=== PATIENT | male | born 1990 | race Two or more races ===

== ENCOUNTER 2022-07-13 04:43 | Emergency (ER) | payer MEDICAID, OTHER ==
[~2022-07-13] VITALS: Ht 162.6 cm; Wt 80.0 kg
[2022-07-13] MEDS ORDERED: SODIUM CHLORIDE 0.9% 2,000 ML IV ONE (05:30)
[2022-07-13] MEDS ORDERED: levETIRAcetam 500 MG/5ML INJ IV ONE (05:39)
[2022-07-13 06:35] LABS: Urine Bacteria NONE SEEN /hpf (None Seen); Urine Blood TRACE /uL (Negative); Urine Specific Gravity 1.018 (1.001-1.035); Urine WBC 2 /hpf (0 - 3)
[2022-07-13 06:40] LABS: Basophils # (auto) 0 10 ^3/uL (0-0.2); Basophils % (auto) 0.4 % (0.0-2.0); Eosinophils # (auto) 0 10 ^3/uL (0-0.8); Eosinophils % (auto) 0.1 % (0.0-7.0); Hematocrit 45.7 % (41.0-53.0); Hemoglobin 15.7 g/dL (13.5-17.5); Lymphocytes # (auto) 0.9 10 ^3/uL (0.4-5.4); Lymphocytes % (auto) 9.5 % (10.0-50.0); Mean Corpuscular Hgb Conc. 34.3 g/dL (32.0-36.0); Mean Corpuscular Volume 90.4 fL (80.0-100.0); Monocytes # (auto) 0.6 10 ^3/uL (0-1.3); Monocytes % (auto) 6.1 % (0.0-12.0); Neutrophils # (auto) 8.1 10 ^3/uL (1.6-8.6); Neutrophils % (auto) 83.9 % (37.0-80.0); Nucleated Red Blood Cells % 1.2 %; Red Blood Cells 5.05 10^6/uL (4.5-5.90); Red Cell Distribution Width 13.5 % (11.8-14.3); White Blood Cell 9.7 10^3/uL (4.4-10.8)
[2022-07-13 06:51] LABS: Albumin 4.2 g/dL (3.4-5.0); BUN/Creatinine Ratio 15.1; Calcium 8.8 mg/dL (8.5-10.1)
[2022-07-13 06:52] LABS: Lactic Acid w/Reflex 2.6 mmol/L (0.4-2.0)
[2022-07-13 06:54] LABS: Bilirubin, Total 0.2 mg/dL (0.2-1.0)
[2022-07-13] MEDS ORDERED: LORazepam 2MG/ML-1ML VIAL IV ONE (07:45)
[2022-07-13] MEDS ORDERED: SODIUM CHLORIDE 0.9% 1,000 ML IV ONE (08:45)
[2022-07-13 10:00] VITALS: BP 109/67
== END 2022-07-13 11:08 | disposition left against medical advice (07) ==
LOC: ER 04:43 → EDBD 04:43 → ER 10:54
DX: R56.9 Unspecified convulsions (principal); Z86.69 Personal history of other diseases of the nervous system and sense organs
CPT/HCPCS: 36415; 70450; 71045; 80053; 80164; 81001; 82542; 83605; 85025; 85379; 93005; 96361; 96365; 96375; 99285; J1953; J2060; J7030; J7060

== ENCOUNTER 2022-08-12 07:52 | Emergency (ER) | payer MEDICAID ==
[~2022-08-12] VITALS: Ht 175.3 cm; Wt 86.3 kg
[2022-08-12] MEDS ORDERED: LORazepam 2MG/ML-1ML VIAL IV ONE (08:45)
[2022-08-12 08:58] LABS: Basophils # (auto) 0 10 ^3/uL (0-0.2); Basophils % (auto) 0.8 % (0.0-2.0); Eosinophils # (auto) 0.1 10 ^3/uL (0-0.8); Eosinophils % (auto) 1.1 % (0.0-7.0); Hematocrit 50.5 % (41.0-53.0); Hemoglobin 16.9 g/dL (13.5-17.5); Lymphocytes # (auto) 1.3 10 ^3/uL (0.4-5.4); Lymphocytes % (auto) 28.3 % (10.0-50.0); Mean Corpuscular Hemoglobin 31.1 pg (28.0-32.0); Mean Corpuscular Hgb Conc. 33.5 g/dL (32.0-36.0); Mean Corpuscular Volume 92.7 fL (80.0-100.0); Monocytes # (auto) 0.3 10 ^3/uL (0-1.3); Monocytes % (auto) 7.4 % (0.0-12.0); Neutrophils # (auto) 2.9 10 ^3/uL (1.6-8.6); Neutrophils % (auto) 62.4 % (37.0-80.0); Nucleated Red Blood Cells % 0.1 %; Red Blood Cells 5.45 10^6/uL (4.5-5.90); Red Cell Distribution Width 12.6 % (11.8-14.3); White Blood Cell 4.7 10^3/uL (4.4-10.8)
[2022-08-12 09:15] LABS: Albumin 4.2 g/dL (3.4-5.0); BUN/Creatinine Ratio 12.5; Bilirubin, Total 0.4 mg/dL (0.2-1.0); Calcium 9.2 mg/dL (8.5-10.1); Potassium 4.7 mmol/L (3.5-5.1); Total Protein 7.5 g/dL (6.4-8.2)
[2022-08-12 10:24] LABS: Urine Bacteria NONE SEEN /hpf (None Seen); Urine Blood TRACE /uL (Negative); Urine Hyaline Cast FEW /lpf (0 - 2); Urine Specific Gravity 1.021 (1.001-1.035); Urine WBC 3 /hpf (0 - 3)
[2022-08-12 11:07] VITALS: BP 104/68
== END 2022-08-12 11:13 | disposition home or self-care (01) ==
LOC: EDBD 07:52 → ER 07:56
DX: G40.909 Epilepsy, unspecified, not intractable, without status epilepticus (principal); Z85.841 Personal history of malignant neoplasm of brain
CPT/HCPCS: 36415; 80053; 81001; 85025; 96365; 96375; 99284; J1953; J2060; J7060

== ENCOUNTER 2022-08-27 05:47 | Emergency (ER) | payer MEDICAID ==
[~2022-08-27] VITALS: Ht 175.3 cm; Wt 86.2 kg
[2022-08-27 06:17] VITALS: BP 147/90
[2022-08-27] MEDS ORDERED: SODIUM CHLORIDE 0.9% 1,000 ML IV ONE (07:30)
[2022-08-27 08:03] LABS: Basophils # (auto) 0 10 ^3/uL (0-0.2); Basophils % (auto) 0.6 % (0.0-2.0); Eosinophils # (auto) 0 10 ^3/uL (0-0.8); Eosinophils % (auto) 0.4 % (0.0-7.0); Hematocrit 46.9 % (41.0-53.0); Lymphocytes % (auto) 19.1 % (10.0-50.0); Mean Corpuscular Hemoglobin 31.4 pg (28.0-32.0); Mean Corpuscular Hgb Conc. 34.2 g/dL (32.0-36.0); Mean Corpuscular Volume 91.8 fL (80.0-100.0); Monocytes # (auto) 0.5 10 ^3/uL (0-1.3); Neutrophils # (auto) 3.7 10 ^3/uL (1.6-8.6); Neutrophils % (auto) 70.9 % (37.0-80.0); Red Blood Cells 5.11 10^6/uL (4.5-5.90); Red Cell Distribution Width 12.5 % (11.8-14.3); White Blood Cell 5.2 10^3/uL (4.4-10.8)
[2022-08-27 08:15] LABS: Potassium 4.4 mmol/L (3.5-5.1)
[2022-08-27 08:23] LABS: Albumin 4.1 g/dL (3.4-5.0); BUN/Creatinine Ratio 9.1; Bilirubin, Total 0.5 mg/dL (0.2-1.0); Calcium 9.5 mg/dL (8.5-10.1); Total Protein 7.2 g/dL (6.4-8.2)
[2022-08-27] MEDS ORDERED: levETIRAcetam 500 MG/5ML INJ IV ONE (14:16)
== END 2022-08-27 15:11 | disposition home or self-care (01) ==
LOC: ER 05:47 → EDBD 05:47 → ER 15:11
DX: R56.9 Unspecified convulsions (principal)
CPT/HCPCS: 36415; 70450; 80053; 85025; 93005; 96365; 99285; J1953; J7030; J7060

== ENCOUNTER 2025-05-14 10:42 | Inpatient (IN) | payer MEDICAID ==
[~2025-05-14] VITALS: Ht 172.7 cm; Wt 86.4 kg
--- NOTE | 2025-05-14 11:07 | ED.PDOC ---
HPI (NEURO) HPI Comments 34-year-old male with a history of seizures, and a brain tumor, was brought in by Emergency Services for the chief complaint of a witnessed tonic-clonic seizure. EMS states upon arrival patient had already preceded to his postictal state, and notes the patient's heart rate was in the 180s to 200s eats permanent on route, and was given 6 mg of adenosine, and a 500 normal saline bolus with notable improvement. Patient is now alert oriented x4 and answering questions appropriately. Patient notes that he has been compliant with his Keppra medication. Patient denies any nausea, vomiting, diarrhea, abdominal pain, blurry vision, urinary symptoms, or any other associated symptoms, factors, modifiers at this time. Chief Complaint: Seizure Time Seen by MD: 11:04 Reviewed Notes: Nurses Notes, Coagulating Bath Mixer Notes, Medications, Allergies Information Source: Patient, Emergency Med Personnel Mode of Arrival: EMS Severity: Moderate Dizziness/Weakness Severity: Bedridden Headache Severity: Moderate Timing: Minutes Duration: Since onset, Hours Prehospital treatment: 12 Lead EKG, Accucheck, Supervisor Cell Maintenance Seizure Quality: Tonic-clonic Headache Quality: Throbbing Headache Location: Generalized Weakness Location: Generalized Numbness Location: Generalized Seizure Location: Generalized Onset: At rest Circumstances: Spontaneous Symptoms: Weakness Before: Normal During: Awake After: Confusion, Headache History of: Seizure Disorder Modifying factors: Nothing Associated Signs and Symptoms: None Past Medical History PAST MEDICAL HISTORY: Cancer, Seizures Family History Family History: Reviewed,noncontributory to illness Social History Smoker: Non-Smoker Alcohol: Denies ETOH Use Drugs: Denies Drug Use Lives In: Home Constitutional: denies: chills, diaphoresis, fatigue, fever, malaise, sweats, weakness, others EENTM: denies: blurred vision, double vision, ear bleeding, ear discharge, ear drainage, ear pain, ear ringing, eye pain, eye redness, hearing loss, mouth pain, mouth swelling, nasal discharge, nose bleeding, nose congestion, nose pain, photophobia, tearing, throat pain, throat swelling, voice changes, others Respiratory: denies: cough, hemoptysis, orthopnea, SOB at rest, shortness of breath, SOB with excertion, stridor, wheezing, others Cardiovascular: denies: chest pain, dizzy spells, diaphoresis, Dyspnea on e xertion, edema, irregular heart beat, left arm pain, lightheadedness, palpitations, PND, syncope, others Gastrointestinal: denies: abdomen distended, abdominal pain, blood streaked bowels, constipated, diarrhea, dysphagia, difficulty swallowing, hematemesis, melena, nausea, poor appetite, poor fluid intake, rectal bleeding, rectal pain, vomiting, others Genitourinary: denies: burning, dysuria, flank pain, frequency, hematuria, incontinence, penile discharge, penile sore, pain, testicle pain, testicle swelling, urgency, others Neurological: reports: seizure; denies: dizziness, fainting, headache, left sided numbness, left sided weakness, numbness, paresthesia, pre-existing deficit, right sided numbness, right sided weakness, speech problems, tingling, tremors, weakness, others Musculoskeletal: denies: back pain, gout, joint pain, joint swelling, muscle pain, muscle stiffness, neck pain, others Integumetry: denies: bruises, change in color, change in hair/nails, dryness, laceration, lesions, lumps, rash, wounds, others Allergic/Immunocompromised: denies: Difficulty Healing, Frequent Infections, Hives, Itching, others Hematologic/Lymphatic: denies: anemia, blood clots, easy bleeding, easy bruising, swollen glands, others Endocrine: denies: excessive hunger, excessive sweating, excessive thirst, excessive urination, flushing, intolerance to cold, intolerance to heat, unexplained weight gain, unexplained weight loss, others Psychiatric: denies: anxiety, bipolar disorder, depression, hopeless, panic disorder, schizophrenia, sleepless, suicidal, others All Other Systems: Reviewed and Negative Physical Exam General Appearance: Moderate Distress, Normal HEENT: Normal ENT Inspection, Pharynx Normal, TMs Normal Neck: Full Range of Motion, Non-Tender, Normal, Normal Inspection Respiratory: Chest Non-Tender, Lungs Clear, No Accessory Muscle Use, No Respiratory Distress, Normal Breath Sounds Cardiovascular: Irregular, No Edema, No JVD, No Murmur, No Gallop, Normal Peripheral Pulses Breast Exam: Deferred Gastrointestinal: No Organomegaly, Non Tender, No Pulsatile Mass, Normal Bowel Sounds, Soft Genitalia: Deferred Pelvic: Deferred Rectal: Deferred Extremities: No calf tenderness, Normal capillary refill, Normal inspection, Normal range of motion, Non-tender, No pedal edema Musculoskeletal : Apperance: Normal Neurologic: Disoriented, No Motor Deficits, No Sensory Deficits Cerebellar Function: NOT DONE Reflexes: NOT DONE Skin: Dry, Normal Color, Warm Peripheral Pulses: 3+ Radial (R), 3+ Radial (L) Lymphatic: No Adenopathy Was a procedure done? Was a procedure done?: No Differential Diagnosis (SZ) Seizure: Psychogenic Seizure, Alcohol Withdrawl, Closed Head Injury, CVA/TIA, Drug Ingestion, Syncope, Encephalopathy CVA: CVA, Electrolyte Imbalance, Encephalopathy, TIA General Weakness: N/A Headache: N/A X-Ray, Labs, Meds, VS Vital Signs Date Time Temp Pulse Resp B/P (MAP) Pulse Ox O2 Delivery O2 Flow Rate FiO2 05/14/25 11:35 117/75 05/14/25 11:05 104/57 05/14/25 10:50 98.4 180 24 113/82 99 98.4 05/14/25 10:48 174 Lab Test 05/14/25 11:42 05/14/25 11:10 Range/Units Urine Color Pending Urine Clarity Pending Urine pH Pending Urine Specific [place] Pending Urine Protein Pending Urine Ketones Pending Urine Blood Pending Urine Nitrite Pending Urine Bilirubin Pending Urine Urobilinogen Pending Urine Leukocyte Esterase Pending Urine RBC Pending Urine Microscopic WBC Pending Urine Squamous Epithelial Cells Pending Urine Bacteria Pending Urine Glucose Pending White Blood Count 13.2 H 4.4-10.8 10^3/uL Red Blood Count 5.32 4.5-5.90 10^6/uL Hemoglobin 17.4 13.5-17.5 g/dL Hematocrit 49.8 41.0-53.0 % Mean Corpuscular Volume 93.6 80.0-100.0 fL Mean Corpuscular Hemoglobin 32.8 H 28.0-32.0 pg Mean Corpuscular Hemoglobin Concent 35.0 32.0-36.0 g/dL Red Cell Distribution Width 12.8 11.8-14.3 % Platelet Count 302 140-450 10^3/uL Mean Platelet Volume 7.8 6.9-10.8 fL Neutrophils (%) (Auto) 76.5 37.0-80.0 % Lymphocytes (%) (Auto) 14.3 10.0-50.0 % Monocytes (%) (Auto) 8.4 0.0-12.0 % Eosinophils (%) (Auto) 0.3 0.0-7.0 % Basophils (%) (Auto) 0.5 0.0-2.0 % Neutrophils # (Auto) 10.1 H 1.6-8.6 10 ^3/uL Lymphocytes # (Auto) 1.9 0.4-5.4 10 ^3/uL Monocytes # (Auto) 1.1 0-1.3 10 ^3/uL Eosinophils # (Auto) 0 0-0.8 10 ^3/uL Basophils # (Auto) 0.1 0-0.2 10 ^3/uL Nucleated Red Blood Cells 0.1 % Sodium Level 138 136-145 mmol/L Potassium Level 5.5 H 3.5-5.1 mmol/L Chloride Level 104 98-107 mmol/L Carbon Dioxide Level 18 L 20-31 mmol/L Anion Gap 16 H 5-15 Blood Urea Nitrogen 6 L 9-23 mg/dL Creatinine 0.84 0.700-1.30 mg/dL Glomerular Filtration Rate Calc 118 >90 mL/min BUN/Creatinine Ratio 7.1 L 10.0-20.0 Serum Glucose 125 H 74-106 mg/dL Calcium Level 9.8 8.7-10.4 mg/dL Troponin I High Sensitivity 12 </=54 ng/L Current Medications Medications (Trade) Dose Ordered Sig/Rosalinda Route Start Time Stop Time Status Last Admin Diltiazem HCl (Cardizem Injection) 20 mg ONCE ONCE IV 05/14/25 11:00 05/14/25 11:10 DC 05/14/25 11:18 Sodium Chloride 1,000 ml @ 1,000 mls/hr Q1H ONCE IV 05/14/25 11:00 05/14/25 11:59 DC 05/14/25 11:30 Diltiazem HCl 100 ml @ 5 mls/hr Q20H IV 05/14/25 11:30 05/14/25 11:05 Levetiracetam 100 ml @ 400 mls/hr ONCE ONCE IV 05/14/25 11:30 05/14/25 11:44 DC 05/14/25 11:49 Patient postictal. History of seizure. Unknown his medication. Placed on oxygen. Was given Keppra. Was given Ativan. Establish intravenous access. Was given fluids. EKG shows atrial fibrillation. Started Cardizem. WBC slightly elevated. Possible dehydration. Reviewed his history. Waiting for family. Continue monitoring. Time of 1ST Reevaluation: 11:35 Reevaluation 1ST: Unchanged Patient Education/Counseling: Diagnosis, Treatment, Need For Follow Up Family Education/Counseling: No Family Present Departure 1 Departure Time of Disposition: 12:00 Impression: Primary Impression: Metabolic encephalopathy Additional Impressions: Seizure Atrial fibrillation Qualified Codes: I48.0 - Paroxysmal atrial fibrillation Disposition: ADMITTED INPATIENT Admit to: Med Surg Condition: Guarded Critical Care Note Critical Care Time?: Yes (90 min-critical care time only) Stability Stability form required: No Heart Score Heart Score: Heart Score Response (Comments) Value History N/A 0 EKG N/A 0 Age N/A 0 Risk Factors N/A 0 Troponin N/A 0 Total 0 I personally scribed for YESICA MILTON MD ([email or web address]) on 05/14/25 at 11:07. Electronically submitted by Apollo Andersen ([email or web address]). YESICA MILTON MD May 14, 2025 11:07
[2025-05-14] MEDS: dilTIAZem 25 MG/5 ML VIAL IV ONE ×3 (11:18→11:20)
[2025-05-14] MEDS: SODIUM CHLORIDE 0.9% 1,000 ML IV ONE (11:30)
[2025-05-14 11:32] LABS: Hematocrit 49.8 % (41.0-53.0); Hemoglobin 17.4 g/dL (13.5-17.5); Mean Corpuscular Hemoglobin 32.8 pg (28.0-32.0); Mean Corpuscular Volume 93.6 fL (80.0-100.0); Nucleated Red Blood Cells % 0.1 %
--- NOTE | 2025-05-14 11:33 | DVH ---
CHEST RADIOGRAPH Indication: sob Technique: Single frontal view of the chest was obtained COMPARISON: CXR1 on DOS: 07/13/22, CHEST XRAY 1 VIEW on DOS: 07/13/22, EKG on DOS: 07/13/22 FINDINGS: Lines and Tubes: None Lungs: Clear Pleura: No effusion. No pneumothorax. Cardiomediastinal contours: Unremarkable Bones: Unremarkable IMPRESSION: No acute disease.
[2025-05-14 11:36] LABS: Chloride 104 mmol/L (98-107); Sodium 138 mmol/L (136-145)
[2025-05-14 11:37] LABS: Anion Gap 16 (5-15)
[2025-05-14 11:38] LABS: Calcium 9.8 mg/dL (8.7-10.4)
[2025-05-14 11:42] LABS: BUN/Creatinine Ratio 7.1 (10.0-20.0)
[2025-05-14] MEDS: levETIRAcetam 1000 mg/100ml 100 ML IV ONE (11:49)
[2025-05-14 12:02] LABS: Blood Urea Nitrogen 6 mg/dL (9-23); Carbon Dioxide 18 mmol/L (20-31); Glucose 125 mg/dL (74-106); Potassium 5.5 mmol/L (3.5-5.1)
[2025-05-14 12:04] LABS: Urine Protein, UAD 1+ (Negative)
[2025-05-14] MEDS: MORPHINE SULFATE INJ 2 MG/ml SYRG IV ONE (12:51)
--- NOTE | 2025-05-14 15:31 | DVH ---
CT HEAD WITHOUT CONTRAST Indication: seizure EXAM DATE: 05/14/2025 02:56 PM COMPARISON: HEAD WITHOUT CONTRAST on DOS: 08/27/22, HEAD WITHOUT CONTRAST on DOS: 07/13/22 TECHNIQUE: CT of the head without intravenous contrast. RADIATION DOSE: CTDIvol: 63 mGy, DLP: 1141 mGy*cm FINDINGS: There is no intracranial hemorrhage. m left frontal hypodense lesion measuring 6.3 x 4 x 5 cm, increa sed from previous examination. There is associated cerebral sulcal effacement. Compression of the fro ntal horn left lateral ventricle. [id number] midline shift of 5 mm. Left frontal craniotomy. No intracranial hemorrhage. Cisterns patent. Mastoids well pneumatized. Mucosal thickening ethmoids a nd left maxillary sinus. Orbits, retrobulbar spaces unremarkable. IMPRESSION: Hypodense region within the left frontal lobe measuring 6.3 x 4 x 5 cm with associated sulcal effacem ent and 5 mm [id number] midline shift, compression of the frontal horn left lateral ventricle conc erning for aggressive process/ neoplasm / tumoral recurrence/ infectious etiology. Recommend MRI bra in with and without contrast to evaluate. This is overall more pronounced than on the previous examin ation. Left frontal craniotomy.
[2025-05-14] MEDS ORDERED: LORazepam 2MG/ML-1ML VIAL IV PRN (16:30)
[2025-05-14] MEDS ORDERED: HYDROcodone-ACET 5/325MG TAB PO PRN (16:30)
[2025-05-14] MEDS ORDERED: ACETAMINOPHEN 325 MG TAB PO PRN (16:30)
[2025-05-14] MEDS ORDERED: ONDANSETRON HCL 4 MG/2 ML VIAL IV PRN (16:30)
--- NOTE | 2025-05-14 16:32 | DVHHP2 ---
Admitting Diagnosis: Seizure History of Present Illness 34-year-old male with a history of seizures, and a brain tumor, was brought in by Emergency Services for the chief complaint of a witnessed tonic-clonic seiz ure. EMS states upon arrival patient had already preceded to his postictal state, and notes the patient's heart rate was in the 180s to 200s eats permanent on route, and was given 6 mg of adenosine, and a 500 normal saline bolus with notable improvement. Patient is now alert oriented x4 and answering questions appropriately. Patient notes that he has been compliant with his Keppra medication. Patient denies any nausea, vomiting, diarrhea, abdominal pain, blurry vision, urinary symptoms, or any other associated symptoms, factors, modifiers at this time. PAST MEDICAL HISTORY: Cancer, Seizures Family History Family History: Reviewed,noncontributory to illness Social History Smoker: Non-Smoker Alcohol: Denies ETOH Use Drugs: Denies Drug Use Lives In: Home Allergies: Coded Allergies: NO KNOWN ALLERGIES (Unverified , 07/13/22) Current Medications Current Medications Medications (Trade) Dose Ordered Sig/Rosalinda Route PRN Reason Start Time Stop Time Status Last Admin Diltiazem HCl 100 ml @ 5 mls/hr Q20H IV 05/14/25 11:30 05/14/25 11:05 Sodium Chloride (Saline Lock Ns) 10 ml Q8HR IV 05/14/25 22:00 UNV Acetaminophen (Tylenol Tablet) 650 mg Q6HP PRN PO PAIN SCALE 1-3 OR TEMP>100.4 05/14/25 16:30 UNV Acetaminophen/ Hydrocodone Bitart ([place] 5/325MG Tab) 1 tab Q4HP PRN PO MODERATE PAIN (4-6 PAIN SCALE) 05/14/25 16:30 UNV Ondansetron HCl (Zofran) 4 mg Q4HP PRN IV NAUSEA / VOMITING 05/14/25 16:30 UNV Vital Signs Vital Signs Date Time Temp Pulse Resp B/P (MAP) Pulse Ox O2 Delivery O2 Flow Rate FiO2 05/14/25 16:00 131/68 05/14/25 16:00 101 20 94 05/14/25 11:00 Room Air* 0 21 05/14/25 11:00 98.4 98.4 Physical Exam Patient is 34 years old male, morbidly obese, lying in bed. No apparent distress HEENT-atraumatic normocephalic Heart-regular rate and regular Lungs clear to auscultate Abdomen soft nontender nondistended Musculoskeletal-no edema cyanosis Neuro-AO x3, no focal deficits SEPSIS Sepsis Screen Date sepsis recognized/suspect: May 14, 2025 Time Sepsis recognized/suspect: 1100 Recent Procedure: No On Antibiotic Therapy: No Respiratory Rate >20: No Heart Rate >90: Yes Temp<36 C (96.8 F) or >38.3 C: No SBP <90 or MAP <65 mmHG: No New Acute Mental Status Change: No Is the patient on CPAP, BIPAP,: No Physician Orders Chest Portable (05/14/25 10:59) Electrocardigram (05/14/25 11:14) Diltiazem 125mg/125ml Bag Kit (Cardizem) (05/14/25 11:30) Head Without Contrast (05/14/25 11:24) * Neurology Consult (05/14/25 14:36) Admit (05/14/25 16:23) Code Status (05/14/25 16:23) Vital Signs .PER UNIT PROTOCOL (05/14/25 16:23) Review Orders With Adm.Md (05/14/25 16:23) Encourage Activity As Tolerate (05/14/25 16:23) Regular Diet (05/14/25 Dinner) Sodium Chloride Lock (Saline Lock Ns) (05/14/25 22:00) Acetaminophen Tablet (Tylenol Tablet) (05/14/25 16:30) Notify Md Of Changes From Base (05/14/25 16:23) Advance Directive (05/14/25 16:23) Patient Condition (05/14/25 16:23) Allergies (05/14/25 16:23) Hydrocodone-Acet 5/325mg Tab ([place] 5/32 (05/14/25 16:30) Ondansetron Hcl (Zofran) (05/14/25 16:30) Neuro Checks Per Unit Protocol (05/14/25 16:23) Brain Head Wo W Contrast (05/14/25 16:25) Valproic Acid Oral Soln (Depakene Oral S (05/14/25 22:00) Levetiracetam Tablet (Keppra Tablet) (05/14/25 22:00) Lamotrigine Tablet (Lamictal Tablet) (05/14/25 22:00) Lorazepam 2mg/Ml Inj (Ativan Inj) (05/14/25 16:30) Seizure Precautions (05/14/25 ) Vital Signs Date Time Temp Pulse Resp B/P (MAP) Pulse Ox O2 Delivery O2 Flow Rate FiO2 05/14/25 16:00 131/68 05/14/25 16:00 101 20 131/68 (89) 94 05/14/25 15:45 90 19 128/67 (87) 95 05/14/25 15:30 113/86 05/14/25 15:30 93 15 113/86 (95) 94 05/14/25 15:15 99 19 106/70 (82) 93 05/14/25 14:45 115 21 118/68 (85) 93 05/14/25 14:30 103 19 109/76 (87) 91 05/14/25 14:22 95 21 103/68 05/14/25 14:18 93 23 103/68 (80) 92 05/14/25 14:00 100 19 139/74 (95) 91 05/14/25 13:45 105 21 130/71 (90) 93 05/14/25 13:35 120/87 05/14/25 13:15 114 23 120/87 (98) 96 05/14/25 13:00 104 23 123/73 (90) 93 05/14/25 12:51 141 24 122/80 05/14/25 12:45 119 23 117/64 (81) 93 05/14/25 12:35 122/80 05/14/25 12:30 141 24 122/80 (94) 97 05/14/25 12:15 99 24 118/89 (99) 93 05/14/25 12:00 143 17 123/93 (103) 93 05/14/25 11:45 130 16 124/82 (96) 93 05/14/25 11:35 117/75 05/14/25 11:30 134 21 117/75 (89) 93 05/14/25 11:15 130 18 103/64 (77) 93 05/14/25 11:05 104/57 05/14/25 11:00 Room Air* 0 21 05/14/25 11:00 98.4 176 17 129/61 (83) 93 98.4 05/14/25 10:50 98.4 180 24 113/82 99 98.4 05/14/25 10:48 174 Laboratory Tests Test 05/14/25 11:10 White Blood Count 13.2 10^3/uL (4.4-10.8) H Medications Medications Dose Ordered Sig/Rosalinda Route Start Time Stop Time Status Last Admin Dose Admin Diltiazem HCl 20 mg ONCE ONCE IV 05/14/25 11:00 05/14/25 11:10 DC 05/14/25 11:18 Diltiazem HCl 100 ml @ 5 mls/hr Q20H IV 05/14/25 11:30 05/14/25 11:05 Levetiracetam 100 ml @ 400 mls/hr ONCE ONCE IV 05/14/25 11:30 05/14/25 11:44 DC 05/14/25 11:49 Morphine Sulfate 2 mg ONCE ONCE IV 05/14/25 12:30 05/14/25 12:31 DC 05/14/25 12:51 Sodium Chloride 1,000 ml @ 1,000 mls/hr Q1H ONCE IV 05/14/25 11:00 05/14/25 11:59 DC 05/14/25 11:30 Results Labs Test 05/14/25 15:20 05/14/25 11:42 05/14/25 11:10 Range/Units Troponin I High Sensitivity 27 </=54 ng/L Urine Color Light-yellow Yellow Urine Clarity Clear Clear Urine pH 5.5 5.0-9.0 Urine Specific [place] 1.014 1.001-1.035 Urine Protein 1+ H Negative Urine Ketones 1+ H Negative Urine Blood 2+ H Negative /uL Urine Nitrite Negative Negative Urine Bilirubin Negative Negative Urine Urobilinogen Normal Negative mg/dL Urine Leukocyte Esterase Negative Negative /uL Urine RBC 2 0 - 3 /hpf Urine Microscopic WBC 2 0-3 /HPF Urine Squamous Epithelial Cells None seen <5 /hpf Urine Bacteria None seen None Seen /hpf Urine Glucose Normal Normal mg/dL White Blood Count 13.2 H 4.4-10.8 10^3/uL Red Blood Count 5.32 4.5-5.90 10^6/uL Hemoglobin 17.4 13.5-17.5 g/dL Hematocrit 49.8 41.0-53.0 % Mean Corpuscular Volume 93.6 80.0-100.0 fL Mean Corpuscular Hemoglobin 32.8 H 28.0-32.0 pg Mean Corpuscular Hemoglobin Concent 35.0 32.0-36.0 g/dL Red Cell Distribution Width 12.8 11.8-14.3 % Platelet Count 302 140-450 10^3/uL Mean Platelet Volume 7.8 6.9-10.8 fL Neutrophils (%) (Auto) 76.5 37.0-80.0 % Lymphocytes (%) (Auto) 14.3 10.0-50.0 % Monocytes (%) (Auto) 8.4 0.0-12.0 % Eosinophils (%) (Auto) 0.3 0.0-7.0 % Basophils (%) (Auto) 0.5 0.0-2.0 % Neutrophils # (Auto) 10.1 H 1.6-8.6 10 ^3/uL Lymphocytes # (Auto) 1.9 0.4-5.4 10 ^3/uL Monocytes # (Auto) 1.1 0-1.3 10 ^3/uL Eosinophils # (Auto) 0 0-0.8 10 ^3/uL Basophils # (Auto) 0.1 0-0.2 10 ^3/uL Nucleated Red Blood Cells 0.1 % Sodium Level 138 136-145 mmol/L Potassium Level 5.5 H 3.5-5.1 mmol/L Chloride Level 104 98-107 mmol/L Carbon Dioxide Level 18 L 20-31 mmol/L Anion Gap 16 H 5-15 Blood Urea Nitrogen 6 L 9-23 mg/dL Creatinine 0.84 0.700-1.30 mg/dL Glomerular Filtration Rate Calc 118 >90 mL/min BUN/Creatinine Ratio 7.1 L 10.0-20.0 Serum Glucose 125 H 74-106 mg/dL Calcium Level 9.8 8.7-10.4 mg/dL Primary Diagnosis Seizure AFib Plan CHADS-VASc score [address] scan shows enlarged brain neoplasm Check brain MRI with and without contrast Neurology consult Neuro check per floor protocol Seizure precaution Resume home meds for seizure Ativan p.r.n. for seizure Regular diet Full code Lovenox for DVT prophylaxis No GI prophylaxis needed Plan discussed with: Patient Problems List: (1) Seizure disorder Status: Acute Date of Service: May 14, 2025 Billing Provider: FARHANA HENDERSON MD Common Visit Codes: [id number] INP/OBS CARE (HIGH) FARHANA HENDERSON MD May 14, 2025 16:32
[2025-05-14] MEDS: GADOTERATE MEG 10 MMOL/20ml INJ (0.5MMOL/ml) IV ONE (17:06)
--- NOTE | 2025-05-14 18:31 | DVH ---
EXAM: MRI BRAIN HEAD WO W CONTRAST CLINICAL HISTORY: seizure, neoplasm enalarging. prior resection COMPARISON: CT HEAD WITHOUT CONTRAST on DOS: 05/14/25, HEAD WITHOUT CONTRAST on DOS: 08/27/22, HEAD WIT HOUT CONTRAST on DOS: 07/13/22 TECHNIQUE: Multiplanar, multisequence magnetic resonance imaging of the brain was performed after the administra tion of intravenous contrast. FINDINGS: Redemonstration of left frontal craniotomy. There is mild dural thickening enhancement adjacent to th e craniotomy site which is most likely associated with the postsurgical changes. There is left high to mid convexity frontal lobe T2/FLAIR hyperintensity without associated enhanceme nt on the postcontrast imaging. There is internal 1.3 x 2.5 cm cystic area within the area of T2/FLAI R hyperintensity which may represent cystic encephalomalacia /resection cavity. There is thin rim of enhancement involving the Area of cystic encephalomalacia /resection cavity. There is mild mass effec t on the adjacent left lateral ventricle with about 6 mm rightward midline shift ; new from 2021 but unchanged from prior CT. No hemorrhages or herniation. No evidence of hydrocephalus. The basal cisterns are patent. The vascul ar flow voids are maintained. The pituitary gland, sella and parasellar regions are unremarkable. The cerebellar tonsils are in nor mal position. The cerebellum is unremarkable. The orbits and globes unremarkable. Mild mucoperiosteal thickening of the ethmoid air cells, left max illary sinus and left sphenoid sinus. The remainder of the paranasal sinuses and mastoids are clear. There are No worrisome calvarial lesions. IMPRESSION: Postsurgical changes of prior left frontal craniotomy for tumor resection with 1.3 x 2.5 cm cystic ar ea within the left frontal lobe with thin rim of wall enhancement which may be associated with postsu rgical changes. Additional dural thickening and enhancement is noted adjacent to the craniotomy site which most likely represents postsurgical changes. There is T2/FLAIR hyperintensity surrounding the area of suggested cystic encephalomalacia/ resection cavity with mild mass effect on the adjacent left lateral ventricle and associated 6 mm rightward mi dline shift suggestive of edema; unchanged from prior CT but new from 2021. No areas of masslike enhancement are noted.
[2025-05-14 19:45] VITALS: PULSE 110; RESP 15; O2SAT 96
[2025-05-14] MEDS: SODIUM CHLOR 0.9% PF (SALINE LOCK) 10ML VIAL/SYR IV SCH (22:24)
[2025-05-14] MEDS: levETIRAcetam 500 MG TAB PO SCH (22:44)
[2025-05-14] MEDS: lamoTRIgine 100 MG TAB PO SCH (22:44)
[2025-05-14] MEDS: VALPROIC ACID 250 MG/5 ML ORAL SOLN PO SCH (22:45)
[2025-05-15 04:06] LABS: Hematocrit 46.2 % (41.0-53.0); Hemoglobin 16.1 g/dL (13.5-17.5); Mean Corpuscular Hemoglobin 32.6 pg (28.0-32.0); Mean Corpuscular Volume 93.4 fL (80.0-100.0); Nucleated Red Blood Cells % 0.1 %
[2025-05-15 04:23] LABS: Albumin 4.5 g/dL (3.2-4.8); Alkaline Phosphatase 74 U/L (46-116); Anion Gap 13 (5-15); BUN/Creatinine Ratio 8.8 (10.0-20.0); Calcium 9.2 mg/dL (8.7-10.4); Carbon Dioxide 24 mmol/L (20-31); Chloride 103 mmol/L (98-107); Glucose 103 mg/dL (74-106); Potassium 4.3 mmol/L (3.5-5.1); Sodium 140 mmol/L (136-145); Total Protein 6.7 g/dL (5.7-8.2)
[2025-05-15 04:24] LABS: Bilirubin, Total 0.5 mg/dL (0.2-1.0)
[2025-05-15 04:31] LABS: Alanine Aminotransferase 66 U/L (7-40); Blood Urea Nitrogen 8 mg/dL (9-23)
[2025-05-15 07:54] VITALS: PULSE 95; RESP 19; O2SAT 97
[2025-05-15] MEDS: ENOXAPARIN SOD 40 MG/0.4 ML SYRINGE SC SCH (11:00)
[2025-05-15 11:50] VITALS: BP 126/86; PULSE 99; RESP 18; TEMP 98.8; O2SAT 95
[2025-05-15] MEDS ORDERED: LEVE500T40 PO (13:28)
[2025-05-15] MEDS ORDERED: DIVA-91 PO (13:28)
[2025-05-15] MEDS ORDERED: LACO1TAB PO (13:28)
--- NOTE | 2025-05-15 15:32 | DVHINCON2 ---
Date of service: May 15, [address] Huston Reason for Consultation Seizure History of Present Illness Mr. cMkeon is a 34 years old right-handed gentleman with a history of glioblastoma multiforme status post craniotomy, seizure disorder, he came to the hospital on 05/14/2025 with a chief complaint of seizure activity. At that time, he is alert and fully oriented, I have also discussed with his after talking to him, his nurse On 05/12/2025, he remember at home, but next memory was waking up with EMS personnel around him, confused, right tongue laceration, he was said to have a seizure where he was shaking all over body with nonresponsiveness He has a seizure disorder for about two years, where he has spells of generalized convulsion with loss of consciousness, incontinence, oral trauma, he has a seizure about once yearly, he sees a [facility] neurologist, he is on Depakote 500 mg two tablets b.i.d., Keppra 750 mg two tablets b.i.d., Vimpat 100 mg one tablets b.i.d. he reported missing all his seizure medication for one day before the seizure breakthrough He is to have craniotomy in August 2025 He drives, but he has been advised not drive and he is cleared WBC, 05/14/2025: WBC: 2, urine leukocyte esterase: Negative CBC, 05/15/2025: Unremarkable HCO3, 05/14/2025: 18, 04/2325: 24 TBI/AST/ALT/AP, 04/2325, 0.5/43/66/74 CT head, 05/14/2025: Hypodense region within the left frontal lobe measuring 6.3 x 4 x 5 cm with associated sulcal effacement and 5 mm [id number] midline shift, compression of the frontal horn left lateral ventricle concerning for aggressive process/ neoplasm / tumoral recurrence/ infectious etiology. Recommend MRI brain with and without contrast to evaluate. This is overall more pronounced than on the previous examination. Left frontal craniotomy. MRI head o 05/14/2025: Postsurgical changes of prior left frontal craniotomy f or tumor resection with 1.3 x 2.5 cm cystic area within the left frontal lobe with thin rim of wall enhancement which may be associated with postsurgical changes. Additional dural thickening and enhancement is noted adjacent to the craniotomy site which most likely represents postsurgical changes. 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 No areas of masslike enhancement are noted. Past Medical History Glioblastoma multiforme Past Surgical History Craniotomy for GBM, right forearm surgery Family History: Patient reports no known family medical history. Family History Diabetes Social History He was a tobacco smoke, but no history of drug/alcohol abuse Allergies: Coded Allergies: NO KNOWN ALLERGIES (Unverified , 07/13/22) Home Meds Reported Medications Lacosamide (Lacosamide 50 mg) 1 Tab Tab, 2 TAB PO BID, TAB 05/15/25 Divalproex Sodium (Depakote) 500 Mg Tab, 1000 MG PO BID, TAB 05/15/25 Levetiracetam (Keppra) 500 Mg Tab, 1500 MG PO BID for 30 Days, MG 05/15/25 Current Medications Current Medications Medications (Trade) Dose Ordered Sig/Rosalinda Route PRN Reason Start Time Stop Time Status Last Admin Sodium Chloride (Saline Lock Ns) 10 ml Q8HR IV 05/14/25 22:00 05/15/25 13:02 Acetaminophen (Tylenol Tablet) 650 mg Q6HP PRN PO PAIN SCALE 1-3 OR TEMP>100.4 05/14/25 16:30 Acetaminophen/ Hydrocodone Bitart (Breese 5/325MG Tab) 1 tab Q4HP PRN PO MODERATE PAIN (4-6 PAIN SCALE) 05/14/25 16:30 Ondansetron HCl (Zofran) 4 mg Q4HP PRN IV NAUSEA / VOMITING 05/14/25 16:30 Valproate Sodium (Depakene Oral Silvia) 1,500 mg BID PO 05/14/25 22:00 05/15/25 11:26 Levetiracetam (Keppra Tablet) 1,500 mg BID PO 05/14/25 22:00 05/15/25 10:59 Lamotrigine (LaMICtal TABLET) 100 mg BID PO 05/14/25 22:00 05/15/25 10:59 Lorazepam (Ativan Inj) 1 mg Q5MINP PRN IV SEIZURES 05/14/25 16:30 Enoxaparin Sodium (Lovenox) 40 mg DAILY SC 05/15/25 10:00 05/15/25 11:00 Review of Systems As above, the other systems are negative Vital Signs Vital Signs Date Time Temp Pulse Resp B/P (MAP) Pulse Ox O2 Delivery O2 Flow Rate FiO2 05/15/25 11:50 99 18 95 Room Air* 0 21 05/15/25 11:50 98.8 126/86 (99) 98.8 Physical Exam GENERAL EXAM: General: the patient is well developed and nourished. No acute distress. HEENT: Status post craniotomy, neck is supple, no carotid bruits. No mass RESPIRATORY: Normal respiratory effort with symmetrical lung expansion. Lungs clear to auscultation. CARDIOVASCULAR: Regular rate and rhythm with no murmurs. S1, S2. ABDOMEN: Soft, nontender, normal bowel sound NEUROLOGICAL: MENTAL STATUS: Awake and alert. Oriented to person, place, time and general circumstances. Able to give personal history. SPEECH, LANGUAGE, HIGHER CORTICAL FUNCTION: no aphasia or dysathria. CRANIAL NERVES: #2: Intact visual malin to confrontation. The optic discs were sharp. #3,4,6: Pupils are equal, round and reactive. EOMs full and conjugate. No nystagmus. #5: Facial sensation intact in all three divisions bilaterally. Mandibular strength intact. #7: Facial muscles symmetrical and strength intact. #8: Hearing grossly normal to voice. #9,10: Uvula and soft palate rise in the midline. Swallow and voice are normal. #11: Trapezius and sternomastoid strength intact bilaterally. #12: Tongue midline. No fasciculations or atrophy. SENSATION: Sensation to touch and pinprick is normal. MOTOR: Normal tone in the upper and lower extremity. Mild atrophy in the right upper extremity. No fasciculations. No abnormal movements or posturing. Muscle strength of the major groups in the left extremities is 5/5. Muscle strength of the major groups in the right extremities is 5/5. REFLEXES: Deep tendon reflexes normal and symmetrical. No pathological reflexes. CEREBELLAR/COORDINATION: Finger to nose and heel to [place]ure[place] are normal bilaterally. GAIT/STATION: Within normal limits Labs/Diagnostic Data Labs Test 05/15/25 03:42 05/14/25 15:20 05/14/25 11:42 Range/Units White Blood Count 8.5 # 4.4-10.8 10^3/uL Red Blood Count 4.95 4.5-5.90 10^6/uL Hemoglobin 16.1 13.5-17.5 g/dL Hematocrit 46.2 41.0-53.0 % Mean Corpuscular Volume 93.4 80.0-100.0 fL Mean Corpuscular Hemoglobin 32.6 H 28.0-32.0 pg Mean Corpuscular Hemoglobin Concent 34.8 32.0-36.0 g/dL Red Cell Distribution Width 12.6 11.8-14.3 % Platelet Count 265 140-450 10^3/uL Mean Platelet Volume 7.9 6.9-10.8 fL Neutrophils (%) (Auto) 53.8 37.0-80.0 % Lymphocytes (%) (Auto) 36.5 10.0-50.0 % Monocytes (%) (Auto) 7.8 0.0-12.0 % Eosinophils (%) (Auto) 1.0 0.0-7.0 % Basophils (%) (Auto) 0.9 0.0-2.0 % Neutrophils # (Auto) 4.6 1.6-8.6 10 ^3/uL Lymphocytes # (Auto) 3.1 0.4-5.4 10 ^3/uL Monocytes # (Auto) 0.7 0-1.3 10 ^3/uL Eosinophils # (Auto) 0.1 0-0.8 10 ^3/uL Basophils # (Auto) 0.1 0-0.2 10 ^3/uL Nucleated Red Blood Cells 0.1 % Sodium Level 140 136-145 mmol/L Potassium Level 4.3 3.5-5.1 mmol/L Chloride Level 103 98-107 mmol/L Carbon Dioxide Level 24 20-31 mmol/L Anion Gap 13 5-15 Blood Urea Nitrogen 8 L 9-23 mg/dL Creatinine 0.91 0.700-1.30 mg/dL Glomerular Filtration Rate Calc 114 >90 mL/min BUN/Creatinine Ratio 8.8 L 10.0-20.0 Serum Glucose 103 74-106 mg/dL Calcium Level 9.2 8.7-10.4 mg/dL Total Bilirubin 0.5 0.2-1.0 mg/dL Aspartate Amino Transferase (AST) 41 H 13-40 U/L Alanine Aminotransferase (ALT) 66 H 7-40 U/L Alkaline Phosphatase 74 46-116 U/L Total Protein 6.7 5.7-8.2 g/dL Albumin 4.5 3.2-4.8 g/dL Troponin I High Sensitivity 27 </=54 ng/L Urine Color Light-yellow Yellow Urine Clarity Clear Clear Urine pH 5.5 5.0-9.0 Urine Specific [place] 1.014 1.001-1.035 Urine Protein 1+ H Negative Urine Ketones 1+ H Negative Urine Blood 2+ H Negative /uL Urine Nitrite Negative Negative Urine Bilirubin Negative Negative Urine Urobilinogen Normal Negative mg/dL Urine Leukocyte Esterase Negative Negative /uL Urine RBC 2 0 - 3 /hpf Urine Microscopic WBC 2 0-3 /HPF Urine Squamous Epithelial Cells None seen <5 /hpf Urine Bacteria None seen None Seen /hpf Urine Glucose Normal Normal mg/dL Assessment Grand mal seizure Grand mal seizure breakthrough secondary to poor compliance Glioblastoma multiforme status post craniotomy 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 Vimpat 100 mg b.i.d. Keppra 1500 mg b.i.d. He has been advised not to drive until he cleared DMV report in the chart For okay to discharge from neurologic point of view Plan discussed with: Patient, Spouse, Other EROS ONEILL MD May 15, 2025 15:32
[2025-05-15 15:49] VITALS: BP 118/71; PULSE 86; RESP 15; TEMP 99; O2SAT 93
[2025-05-15 17:09] VITALS: BP 130/81; PULSE 102; RESP 17; TEMP 98.3; O2SAT 94
--- NOTE | 2025-05-15 18:43 | DVHPN2 ---
[facility] Patient [facility] overnight for seizures. No further seizures today. Apparently patient skipped few of his seizure medications prior to admission. Changes from previous H/P or p: No Changes Objective Vitals Vital Signs Date Time Temp Pulse Resp B/P (MAP) Pulse Ox O2 Delivery O2 Flow Rate FiO2 05/15/25 17:09 98.3 102 17 130/81 (97) 94 98.3 05/15/25 11:50 Room Air* 0 21 Intake/Output Intake and Output 05/15/25 07:00 Intake Total 1000 ml Balance 1000 ml IV Total 1000 ml Exam Alert awake oriented x3. Ambulating. HEENT neck supple no JVD. Heart regular rate rhythm S1-S2. Lungs fair air movement without rales wheezes. Abdomen soft nontender positive bowel sounds. Extremities no edema positive pulses. Neurologic no focal deficits. Medications Current Medications Medications Dose Ordered Sig/Rosalinda Route Start Time Stop Time Status Last Admin Dose Admin Sodium Chloride 10 ml Q8HR IV 05/14/25 22:00 05/15/25 13:02 10 ML Acetaminophen 650 mg Q6HP PRN PO 05/14/25 16:30 Acetaminophen/ Hydrocodone Bitart 1 tab Q4HP PRN PO 05/14/25 16:30 Ondansetron HCl 4 mg Q4HP PRN IV 05/14/25 16:30 Levetiracetam 1,500 mg BID PO 05/14/25 22:00 05/15/25 10:59 1,500 MG Lamotrigine 100 mg BID PO 05/14/25 22:00 05/15/25 10:59 100 MG Lorazepam 1 mg Q5MINP PRN IV 05/14/25 16:30 Enoxaparin Sodium 40 mg DAILY SC 05/15/25 10:00 05/15/25 11:00 40 MG Valproate Sodium 1,000 mg BID PO 05/15/25 22:00 Laboratory Results Laboratory Tests 05/15/25 03:42 Chemistry Test 05/15/25 03:42 Albumin 4.5 g/dL (3.2-4.8) Calcium Level 9.2 mg/dL (8.7-10.4) Total Protein 6.7 g/dL (5.7-8.2) LFT Test 05/15/25 03:42 Alanine Aminotransferase (ALT) 66 U/L (7-40) H Alkaline Phosphatase 74 U/L (46-116) Aspartate Amino Transferase (AST) 41 U/L (13-40) H Total Bilirubin 0.5 mg/dL (0.2-1.0) Urinalysis Test 05/14/25 11:42 Urine Color Light-yellow (Yellow) Urine Clarity Clear (Clear) Urine pH 5.5 (5.0-9.0) Urine Specific [place] 1.014 (1.001-1.035) Urine Protein 1+ (Negative) H Urine Ketones 1+ (Negative) H Urine Blood 2+ /uL (Negative) H Urine Nitrite Negative (Negative) Urine Bilirubin Negative (Negative) Urine Urobilinogen Normal mg/dL (Negative) Urine Leukocyte Esterase Negative /uL (Negative) Urine RBC 2 /hpf (0 - 3) Urine Microscopic WBC 2 /HPF (0-3) Urine Squamous Epithelial Cells None seen /hpf (<5) Urine Bacteria None seen /hpf (None Seen) Urine Glucose Normal mg/dL (Normal) Assessment/Plan Assessment/Plan Grand mal seizure Grand mal seizure breakthrough secondary to poor compliance Glioblastoma multiforme status post craniotomy 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 Discussed with the neurologist. Continue present antiseizure medications. Monitor him overnight. If he remains stable consider discharge home tomorrow. Discussed with the patient and nurse at bedside regarding care plan Plan discussed with: Patient, Other Date of Service: May 15, 2025 Billing Provider: MYAH MEI MD Common Visit Codes: [id number] INP/OBS CARE(MOD) MYAH MEI MD May 15, 2025 18:42
[2025-05-15] MEDS ORDERED: VALPROIC ACID 250 MG/5 ML ORAL SOLN PO SCH (22:00)
--- NOTE | 2025-05-17 08:51 | ECG ---
[facility] Test Date: 2025-05-14 Test Time: 10:48:07 Pat Name: LINDY VANCE Department: ON LICENSE OF [facility] ED Room: [address] [place] [address] Gender: M Quality Process Auditor: shaw : 1990 Requested By: YESICA MILTON Order Number: [id number] Reading MD: Jian Potter Measurements Intervals [place] Rate: 174 P: 0 AR: 0 QRS: 73 QRSD: 75 T: -6 QT: 253 QTc: 431 Interpretive Statements Atrial fibrillation Minimal ST depression, diffuse leads Electronically Signed On 05-18-2025 14:29:55 PDT by Jian Potter Please click the below link to view image of tracing.
== END 2025-05-15 21:07 | disposition left against medical advice (07) | DRG 53 ==
LOC: EDBD 10:42 → ER 10:42 → OVERFLOW 16:23
PROVIDERS: ADMIT Internal Medicine; ATTEND Internal Medicine
DX: G40.409 Other generalized epilepsy and epileptic syndromes, not intractable, without status epilepticus (principal); G81.91 Hemiplegia, unspecified affecting right dominant side; I48.91 Unspecified atrial fibrillation; Z85.841 Personal history of malignant neoplasm of brain; Z83.3 Family history of diabetes mellitus
CPT/HCPCS: 36415; 70450; 70553; 71045; 80048; 80053; 81001; 84484; 85025; 93005; 96365; 96375; 99291; G0378